=== PATIENT | female | born 1930 | race Caucasian/White ===

== ENCOUNTER 2019-08-11 14:49 | Inpatient (IN) ==
--- NOTE | 2019-08-11 15:16 | Diag Imaging Result Doc PS360 ---
EXAM: CT HEAD W/O CONTRAST HISTORY: stroke like symptoms TECHNIQUE: CT head without contrast COMPARISON: None. FINDINGS: No parenchymal hemorrhage. No epidural or subdural hematoma. No subarachnoid hemorrhage. There is mild atrophy with mild chronic microvascular ischemic changes. No mass identified on this noncontrasted exam. No hydrocephalus. No sinus opacification. IMPRESSION: 1.No hemorrhage 2.Atrophy with chronic microvascular ischemic changes This exam was performed using automated exposure control, adjustment of mA or kV according to patient size, and/or use of iterative reconstruction technique. Electronically signed by Tacos Lund 08/11/2019 3:14 PM
[2019-08-11] MEDS ORDERED: ASPIRIN PO STA (15:22)
[2019-08-11] MEDS ORDERED: INDERAL PO ONE ×2 (15:25→15:30)
[2019-08-11 16:10] LABS: HEMATOCRIT 44.3 % (37.0-47.0); HEMOGLOBIN 14.2 g/dL (12.0-16.0); MCH 31.8 PG (27-31); MCHC 32.1 g/dL (33-37); MCV 99.1 FL (81-99); RBC 4.47 XMIL (4.2-5.4); RDW 13.4 % (11.5-14.5); WBC 6.11 X1000 (4.8-10.8)
[2019-08-11 16:27] LABS: CALCIUM 9.5 mg/dL (8.8-10.2); CREATININE 1.2 mg/dL (0.5-0.9); POTASSIUM 4.5 mmol/L (3.5-5.1)
--- NOTE | 2019-08-11 16:44 | EKG Report ---
Test Performed on : 08/11/2019 4:33:05 PM Test Reason : stroke-like symptoms Blood Pressure : / mmHG Vent. Rate : 080 BPM Atrial Rate : 080 BPM P-R Int : 172 ms QRS Dur : 076 ms QT Int : 400 ms P-R-T Axes : 054 030 000 degrees QTc Int : 461 ms Normal sinus rhythm. Nonspecific ST abnormality Abnormal ECG When compared with ECG of 26-DEC-2015 19:19, T wave inversion now evident in Inferior leads Unconfirmed Result
[2019-08-11] MEDS ORDERED: PHENERGAN IV PRN (18:45)
[2019-08-11] MEDS ORDERED: LOVENOX 1 MG/KG SUBQ SCH (18:45)
[2019-08-11] MEDS ORDERED: DESYREL PO PRN (18:45)
[2019-08-11] MEDS ORDERED: SODIUM CHLORIDE 0.9% INJ PRN (18:45)
[2019-08-11] MEDS ORDERED: TYLENOL PO PRN (18:45)
--- NOTE | 2019-08-11 19:48 | HISTORY AND PHYSICAL ---
CHIEF COMPLAINT: Suspected TIA. HISTORY OF PRESENT ILLNESS: Ms. Samaria Lloyd is an 88-year-old lady who is well known to me. She has a history of essential hypertension, osteoporosis, and a solitary kidney. She presented to the ER this afternoon with a suspected TIA. Mrs. Lloyd had been in her usual state of health and had gone for her weekly appointment at the [facility]. She had sudden onset of dizziness with slurred speech and suspected left arm weakness. Her blood pressure was quite labile. Systolic blood pressures were in the 180s and 190s whereas her diastolic blood pressures were in the 70s and 80s. She denies any chest pain, palpitations, or anginal equivalents. On arrival to the ER, she was back to her baseline neurologically. She was alert and easily arousable. She answered questions appropriately. Her speech was fluent. She did have what appeared to be slight diminished c python developer strength in the left hand. Her initial CT scan of the brain demonstrated chronic white matter changes but there was no evidence of an acute stroke. PAST MEDICAL HISTORY: Essential hypertension, solitary kidney, osteoporosis. PAST SURGICAL HISTORY: , bilateral cataract surgery, appendectomy, hysterectomy. ALLERGIES: No known drug allergies. MEDICATIONS: Vitamin D 50,000 units weekly, propranolol 20 mg b.i.d., trazodone 50 mg at bedtime p.r.n. insomnia. FAMILY HISTORY: Her father had type 2 gud-oceixki-auqedtbby diabetes mellitus, ischemic heart disease and of an KS at age 47. Her mother had hypertension. SOCIAL HISTORY: She is a former smoker. She does not consume alcoholic beverages. She is a . REVIEW OF SYSTEMS: She denies any recent weight gain or weight loss.HEENT: She wears glasses. She is somewhat hard of hearing. CV: No chest pain, palpitations or anginal equivalents. Pulmonary: No shortness of breath, PND, orthopnea. GI: No reflux, dysphagia, melena, hematochezia, change in bowel habits or rectal bleeding. Endocrine: No polyuria, no polydipsia, no cold or heat intolerance. Skin: No easy bruisability. : No leakage of urine with coughing or laughing. Neurologic: She has a somewhat ataxic gait due to neuropathy. Temperature 98 degrees, pulse 79, respirations 16, BP 177/103. HEENT: Fundi with arteriolar wall thickening. Pupils equal, round, reactive to light. Extraocular eye movements intact. TMs without bullae. Neck: Supple. No masses, JVD or bruits. CV: Regular rate and rhythm. Lungs: Clear. Abdomen: Soft, nontender with active bowel sounds. No hepatosplenomegaly. No abdominal bruits. Extremities: Without edema. Skin: No palpable purpura. Breasts/DATA ANALYST/Rectal: Deferred. Neuro: She is alert and easily arousable. She is oriented to name, place, and time. Cranial nerves 2-12 intact grossly. She has somewhat diminished c python developer strength in the left hand. She has normal tone and strength in the lower extremities. Tongue is midline. Speech is fluent. ASSESSMENT AND PLAN: 1. Transient ischemic attack. I suspect that she had a transient ischemic attack due to the underlying hypertension. We will admit the patient to [facility] as an outpatient with observation services. I will begin aspirin 325 mg daily, Lovenox 1 mg/kg subcutaneously b.i.d. and will begin neuro checks every 4 hours for the next 24 hours. I will arrange for carotid ultrasound. If she is neurologically stable in the morning with no deficits I believe that she potentially could be discharged home and I would most likely put her on a medicine like Plavix. Given her age, the potential risks of statin use outweigh the lifetime benefit of statins, I believe that statins are contraindicated. 2. Hypertension. Her blood pressure is too high. I do not want to drop her blood pressure too quickly as it potentially could increase the watershed area of an early stroke. We will continue propranolol 20 mg b.i.d. Ideally I would like to see her systolic blood pressures in the 150s in order to reduce the risk of hypotension and falls. Given her clinical presentation and comorbid conditions, I believe that admission to the hospital for further evaluation and management of the underlying transient ischemic attack is reasonable. I anticipate that she will be in the hospital for at least 1 midnight and I will therefore place her in outpatient status with observation services. cc: Nilsa Courtney MD
[2019-08-11] MEDS: INDERAL PO SCH (20:44)
[2019-08-11] MEDS: LOVENOX SUBQ SCH (20:44)
[2019-08-12] MEDS: LOVENOX SUBQ SCH ×2 (08:44→20:38)
[2019-08-12] MEDS: INDERAL PO SCH ×2 (08:44→20:38)
[2019-08-12 11:20] LABS: URINE SOURCE CLEAN CATCH
[2019-08-12 11:27] LABS: BILIRUBIN URINE NEGATIVE (NEGATIVE); BLOOD URINE SMALL (NEGATIVE); COLOR YELLOW; GLUCOSE URINE NEGATIVE (NEGATIVE); KETONE URINE NEGATIVE (NEGATIVE); LEUKOCYTES URINE LARGE (NEGATIVE); NITRITE URINE NEGATIVE (NEGATIVE); PROTEIN URINE 30 mg/dL (NEGATIVE); SP GRAVITY URINE 1.015; TURBIDITY URINE TURBID (CLEAR); UROBILINOGEN URINE NORMAL (NORMAL)
[2019-08-12 11:35] LABS: UR EPITHELIAL CELLS <10 /HPF (<10); URINE BACTERIA 4+ /HPF; URINE WBC TNTC /HPF (<10)
[2019-08-12 12:14] LABS: URINE YEAST NONE SEEN
[2019-08-12] MEDS: ASPIRIN PO SCH (12:42)
[2019-08-12] MEDS: MACROBID PO SCH (20:38)
[2019-08-13] MEDS: ASPIRIN PO SCH (08:18)
[2019-08-13] MEDS: INDERAL PO SCH ×2 (08:18→20:24)
[2019-08-13] MEDS: MACROBID PO SCH ×2 (08:18→20:25)
[2019-08-13] MEDS: LOVENOX SUBQ SCH ×2 (08:18→20:25)
--- NOTE | 2019-08-13 10:20 | ECHO REPORT ---
ORDER DATE: 08/12/2019 MEASUREMENTS: 1. Septal thickness 1.6. 2. Left ventricular internal diameter in diastole 2.7. 3. Aortic root 3.4. 4. Left atrium 5.0. SUMMARY: 1. Fair quality study. There are no true parasternal windows. 2. Very mild sclerosis of trileaflet aortic valve demonstrated with adequate aortic valve opening evident. Peak gradient across aortic valve is approximately 17 mmHg in the setting of relatively hyperdynamic left ventricle. There is no significant aortic stenosis. There is mild aortic regurgitation. Mild mitral annular calcification is demonstrated. There is mild mitral regurgitation. Tricuspid and pulmonic valves are without evidence of structural abnormality with mild tricuspid regurgitation and trace pulmonic insufficiency. The estimated systolic PA pressure by Doppler is 30 to 35 mmHg. The aortic root is normal size. 3. Normal left ventricular chamber size with moderate concentric left hypertrophy is demonstrated. Estimated left ejection fraction appears to be at least 70%. No regional wall motion abnormality is evident. Doppler suggests grade 1 left ventricular diastolic dysfunction. Left atrium is moderately enlarged. Right atrium and right ventricle normal size with normal right ventricular systolic function. 4. No pericardial effusion. 5. Inferior vena cava not well demonstrated. CONCLUSIONS: 1. Fair quality study. 2. Very mild aortic valve sclerosis without stenosis with mild aortic regurgitation. 3. Mild mitral annular calcification with mild mitral regurgitation. 4. Mild tricuspid regurgitation. 5. Moderate concentric left ventricular hypertrophy with estimated ejection fraction at least 70%. 6. Grade 1 left ventricular diastolic dysfunction suggested. 7. Moderate left atrial enlargement. cc: MD Morgan Ashby MD M. Neel Roberts, MD MTDD
[2019-08-13] MEDS ORDERED: PRINIVIL PO ONE (15:21)
[2019-08-13] MEDS ORDERED: DESYREL PO SCH (21:00)
[2019-08-14] MEDS: MACROBID PO SCH ×2 (08:33→21:29)
[2019-08-14] MEDS: INDERAL PO SCH ×2 (08:33→21:29)
[2019-08-14] MEDS: LOVENOX SUBQ SCH ×2 (08:33→21:29)
[2019-08-14] MEDS: ASPIRIN PO SCH (08:33)
[2019-08-14] MEDS ORDERED: STERILE WATER INJ. INJ ONE (08:36)
--- NOTE | 2019-08-14 19:32 | NEUROLOGY CONSULTATION ---
DATE: 08/14/2019 REASON FOR CONSULT: Stroke. HISTORY OF PRESENT ILLNESS: This is an 88-year-old, right-handed, female, with history of hypertension, who was admitted on 08/11/2019 with concerns for TIA or stroke. History is from chart review and some from the patient, although she has some difficulty with history giving. Apparently, the patient was feeling well. Went to her appointment at the [facility] and while there had the onset of dizziness, slurred speech, and possibly left arm weakness. Her hair assistant recommended that they call EMS and bring her to the hospital. There were no other symptoms reported. Blood pressure on arrival was 177/118. Head CT did not show acute findings. Apparently, the patient's symptoms improved significantly and she was nearly back to baseline in the emergency department. It was felt she had slight diminished sous chef kitchen manager strength on the left hand. I believe the following day, the patient's son felt that her symptoms had worsened again. She was ultimately kept longer in the hospital than anticipated for this reason. Additionally, she has had some confusion mostly overnight. She is diagnosed with urinary tract infection and is receiving treatment for that as well. The patient has been started on low-dose daily aspirin. PAST MEDICAL HISTORY: Includes: 1. Hypertension. 2. Solitary kidney. 3. Osteoporosis. 4. . 5. Bilateral cataract surgery. 6. Appendectomy. 7. Hysterectomy. FAMILY HISTORY: Diabetes, coronary disease, hypertension. SOCIAL HISTORY: She is a former smoker many years ago, she stated. No alcohol or illicits. She is a and lives alone in her own home. She continues to drive and she takes care of herself. She has one son who lives in [place]. ALLERGIES: No known drug allergies listed. CURRENT MEDICATIONS: Reviewed in the chart. She was started on low-dose daily aspirin. REVIEW OF SYSTEMS: Balance of 12 conducted and otherwise negative except that detailed in the HPI. PHYSICAL EXAMINATION: Vital Signs: She is afebrile. Blood pressure currently 140/80. Pulse 82. Respirations 16. Oxygen saturation 98% on room air. Neurologic: Ms. Lloyd is supine in bed. She is awake and alert. She regards as I enter the room. She her name, location as hospital, although later she informs me that she thought she was in [place] at the hospital. She knows the year and the month, but was off by one on both the date and day of the week. She knows the President. She followed simple commands. Left/right digit distinction preserved. She named glasses, but could not name the lens. She named the watch and watch face, but could not name the watch band. She has prominent dysarthria. I do not detect obvious language disturbance on brief bedside testing. I believe her to be a little bit confused regarding the timing of her symptoms and her hospital course when looking through the chart. Pupils are equal, round, and reactive to bright light. Gaze is conjugate. Ocular movements are full. There is mild left-sided flattening of the nasolabial fold and facial asymmetry with smile. She reports preserved sensation to pinprick over the face. Tongue is midline. I could not visualize the palate. She can hear. Shoulder shrug was full. There was not obvious pronator drift. There is mildly diminished sous chef kitchen manager strength on the left compared to the right. I could overcome the deltoids bilaterally; however, I do believe she was not displaying full effort, I believe inadvertently. I do think at times the left may have been slightly worse than the right, but this was not consistent. I could overcome the triceps more so than the right, grading 4/5. Biceps bilaterally seemed reasonably well-preserved. Hip flexor on the left was 4/5 and 5/5 on the right. Knee flexion 4+ out of 5 on the left, and at times 4/5 on the right with again variable effort with testing this area on either side. Extension seemed good bilaterally. Dorsiflexion and plantar flexion were good bilaterally. Pinprick reported symmetric over the limbs. Absent ankle jerks. Trace knee jerks bilaterally. Trace to 1+ biceps bilaterally. No clonus. Plantar responses downgoing bilaterally. I did not test her gait. DIAGNOSTICS: Head CT noncontrast on arrival: No acute findings. There was moderate generalized cerebral atrophy and there is mention of chronic microvascular ischemic changes. This was personally reviewed. Echocardiogram did not mention visualization of clots or thrombus. It did note moderate left atrial enlargement. Labs reviewed in the chart. BUN 26, creatinine of 1.2. Blood glucose normal. There were gram-negative rods growing in the urine. ASSESSMENT AND PLAN: 1. Suspected ischemic stroke with overall mild left hemiparesis, prominent dysarthria. Agree with daily aspirin therapy. Initiation has been done. Statin has not been started given her age and risk versus benefit status there. I would continue to cautiously monitor her blood pressure and avoid hypotension. I believe she is on telemetry monitoring. I believe carotid Dopplers are pending. 2. I believe she has had some periods of confusion, it looks like mostly overnight, and not sleeping well. This may be multifactorial with contributions from current urinary tract infection, her age, recent stroke. I am not certain of her baseline cognitive status, but she does have generalized cerebral atrophy on imaging, probably moderate. Would continue with frequent reorienting as needed. Hopefully, she will continue to improve as her urinary tract infection is improved and as she gets to a more familiar area. Thank you for the consult. cc: MD Nilsa Castaneda MD MTDD
[2019-08-14] MEDS ORDERED: GEODON IM ONE (20:00)
--- NOTE | 2019-08-14 21:01 | Carotid Study ---
DATE: 08/11/2019 REFERRING PHYSICIAN: Nilsa Courtney MD INTERPRETING PHYSICIAN: Cy Mcgill MD QUALITY INTERN: Aristeo. INDICATION: The patient has severe dementia and has a transient ischemic attack. FINDINGS: Velocities are noted. The right internal common carotid shows 0.9. Left is 0.9. Percent stenosis 0 to 39 on the right and 0 to 39 on the left. There is antegrade vertebral flow. INTERPRETATION: Minimal plaque in the bulbs. Neither side produces stenosis of hemodynamic consequence. There is antegrade vertebral flow bilaterally. cc: MD Nilsa Taylor MD
[2019-08-15] MEDS: INDERAL PO SCH ×2 (09:03→20:57)
[2019-08-15] MEDS: ASPIRIN PO SCH (09:03)
[2019-08-15] MEDS: LOVENOX SUBQ SCH ×2 (09:03→20:56)
[2019-08-15] MEDS: MACROBID PO SCH ×2 (09:03→20:57)
--- NOTE | 2019-08-15 09:15 | PROGRESS NOTE ---
DATE: 08/15/2019 Ms. Lloyd was admitted to [facility] on 08/11/2019 with an apparent TIA. Over the weekend, she had episodes of slurred speech and worsening weakness of the left upper extremity. Her CT scan of the brain demonstrated no acute stroke. Her son reported that she felt that she was confused and disoriented over the weekend. A urine culture is growing out gram-negative rods. She is taking Bactrim. This morning, she seemed more like herself. She was sleepy but she opened her eyes to verbal stimuli. She could identify Nickolas. She knew her name and that she was in the hospital. A carotid Doppler demonstrated minimal plaque in the bulbs. No hemodynamic lesion was noted. An echocardiogram demonstrated grade 1 left ventricular diastolic dysfunction and moderate LVH. There was no aortic stenosis. PHYSICAL EXAMINATION: Temperature 98.1 degrees, pulse 87, respirations 22, BP 108/68. CV: Regular rate and rhythm. Lungs: Clear. Abdomen: Soft, nontender, with active bowel sounds. Neurologic: She is alert and oriented to name and place. There is slight weakness of the left upper extremity. She moves all extremities grossly. ASSESSMENT AND PLAN: 1. Suspected cerebrovascular accident. She does not have a pacemaker or other contraindication to an MRI. I will check an MRI of the brain. We will continue physical therapy. We will continue telemetry to make sure there is no evidence of arrhythmias. We will consult social media sr strategy manager for short-term rehab placement. 2. Metabolic encephalopathy secondary to urinary tract infection. We will continue gentle hydration and antibiotics pending urine culture. cc: Nilsa Courtney MD
--- NOTE | 2019-08-15 10:38 | Diag Imaging Result Doc PS360 ---
EXAM: MRI BRAIN W/O CONTRAST 08/15/2019 HISTORY: CVA TECHNIQUE: T1 sagittal, axial and axial T2, FLAIR, DWI, and coronal gradient echo. COMMENT: There is mild generalized cerebral atrophy. There are extensive punctate and lacunar areas of increased T2-weighted signal intensity throughout the white matter of both hemispheres particularly in the external capsule and adjacent basal ganglia on the right side. There is subcortical hyperintensity in the right parietal lobe and patchy increased signal intensity in the periventricular white matter bilaterally. No evidence of bleed or abnormal extra-axial fluid collection is present. There is no mass effect. There are no previous MRI studies. There is restricted diffusion in the de la o radiata and external capsule on the right. IMPRESSION: Extensive chronic ischemic microvascular changes. Additional acute or subacute infarction in the right external capsule and de la o radiata. Electronically signed by Richie Parr 08/15/2019 10:36 AM
[2019-08-15] MEDS ORDERED: FLEET ENEMA PR ONE (16:20)
--- NOTE | 2019-08-15 19:39 | NEUROLOGY PROGRESS NOTE ---
DATE: 08/15/2019 SUBJECTIVE: No major overnight events. The patient says she is not doing well because she has some constipation. She tried prune juice but is requesting more prune juice and/or a suppository. I have let her nurse know. OBJECTIVE: Vital signs: She is afebrile, blood pressure 129/83, pulse 76, respirations 16, 98% on room air. Neurologic: Ms Lloyd is supine in bed. She seemed to be resting initially. She was easily awakened and remained alert and attentive. She followed simple commands. She was oriented to location and self and situation. She followed simple commands consistently. She continues to have subtle flattening of the nasolabial fold on the left. She continues dysarthric. She has a mild left hemiparesis. DIAGNOSTICS: MRI of the brain noncontrast showing extensive chronic changes as well as an acute or subacute infarction in the right external capsule and de la o radiata. There are no labs today. She continues treatment for urinary tract infection. ASSESSMENT AND PLAN: Recent ischemic stroke in the right external capsule and de la o radiata region. She continues to have mild left hemiparesis and prominent dysarthria. Has been stable neurologically yesterday and today. Agree with PT and OT and ST. No further recommendations to add to my note from yesterday. cc: MD Nilsa Castaneda MD
--- NOTE | 2019-08-16 07:53 | EKG Report ---
Test Performed on : 08/16/2019 07:41:10 AM Test Reason : palpitations Blood Pressure : / mmHG Vent. Rate : 144 BPM Atrial Rate : 144 BPM P-R Int : 000 ms QRS Dur : 078 ms QT Int : 350 ms P-R-T Axes : 000 061 014 degrees QTc Int : 541 ms Critical Test Result: High HR , STEMI Supraventricular tachycardia. ST elevation, consider lateral injury or acute infarct ACUTE [place] / STEMI Abnormal ECG When compared with ECG of 11-AUG-2019 16:33, (Unconfirmed) Vent. rate has increased BY [address] elevation has replaced ST depression in Lateral leads T wave inversion now evident in Anterolateral leads Confirmed by Nilsa Courtney MD ([id number]) on 08/16/2019 1:01:21 PM
[2019-08-16] MEDS ORDERED: LOPRESSOR IV ONE ×2 (08:24→09:14)
--- NOTE | 2019-08-16 08:24 | PROGRESS NOTE ---
DATE: 08/16/2019 SUBJECTIVE: An MRI of the brain demonstrated a recent ischemic stroke in the right external capsule and de la o radiata. She continues to have a mild left hemiparesis. She is much more alert and interactive this morning. She is oriented to name, place, and time. She answers questions appropriately. Urine culture is growing out gram-negative rods. She is currently on nitrofurantoin. OBJECTIVE: Vitals: Temperature 97.7 degrees, pulse 91, BP 106/80. CV: Regular rate and rhythm with ectopy. Lungs: Clear. Abdomen: Soft, nontender, with active bowel sounds. No hepatosplenomegaly. No abdominal bruits. Neurologic: Mild left terri paresis. ASSESSMENT AND PLAN: 1. Metabolic encephalopathy secondary to urinary tract infection. Clinically, she is approaching her baseline neurologically. We will continue Macrodantin pending urine and blood cultures. 2. Recent ischemic CVA. Carotid ultrasound demonstrated no hemodynamically significant lesions. An echocardiogram was unremarkable. We will continue aspirin. I heard a lot of ectopy on examination today, and we will check an EKG. She has had a history of paroxysmal atrial fibrillation in the past. 3. Hypertension. Blood pressure is stable, we will continue propranolol. 4. We will continue occupational therapy, physical therapy and are awaiting short-term rehab placement. cc: Nilsa Courtney MD
[2019-08-16] MEDS: MACROBID PO SCH (08:25)
[2019-08-16] MEDS: INDERAL PO SCH ×2 (08:25→20:56)
[2019-08-16] MEDS: LOVENOX SUBQ SCH ×2 (08:25→20:56)
[2019-08-16] MEDS: ASPIRIN PO SCH (08:25)
--- NOTE | 2019-08-16 08:26 | EKG Report ---
Test Performed on : 08/16/2019 08:11:06 AM Test Reason : palpitations Blood Pressure : / mmHG Vent. Rate : 144 BPM Atrial Rate : 144 BPM P-R Int : 114 ms QRS Dur : 086 ms QT Int : 354 ms P-R-T Axes : 014 -04 050 degrees QTc Int : 548 ms Critical Test Result: High HR , STEMI Sinus tachycardia. ST elevation, consider lateral injury or acute infarct ACUTE [place] / STEMI Abnormal ECG When compared with ECG of 16-AUG-2019 07:41, (Unconfirmed) Questionable change in QRS axis Nonspecific T wave abnormality has replaced inverted T waves in Inferior leads Confirmed by Sherwin RITCHIE, MMary Heath ([id number]) on 08/16/2019 1:01:33 PM
[2019-08-16] MEDS ORDERED: CORDARONE PO ONE (08:38)
[2019-08-16] MEDS ORDERED: LANOXIN IV ONE (08:46)
[2019-08-16] MEDS ORDERED: NS 250 ML IV ONE (09:18)
--- NOTE | 2019-08-16 09:32 | PROGRESS NOTE ---
DATE: 08/16/2019 Earlier this morning she was noted to have an elevated heart rate. Ordered an EKG, which demonstrated SVT with a heart rate of 144. She had [address]-segment elevation laterally. She denies any chest pain, palpitations, or anginal equivalents. Repeat EKG appeared to be somewhat more of an atypical atrial flutter. She still had persistent ST-segment elevation changes. OBJECTIVE: Vital Signs: Temperature 97.4 degrees, pulse 148, respirations 18, BP 111/81. CV: Tachycardic, regular S1, S2. Lungs: Clear. Abdomen: Soft, nontender with active bowel sounds. ASSESSMENT AND PLAN: Atypical atrial flutter with ST-segment changes laterally. She is asymptomatic. She denies any chest pain or shortness of breath. I really wonder if this truly represents an MT or more is rate related. We will check CPK, troponin, and I have given her IV Lopressor 5 mg daily to slow her heart rate down. I spoke to Dr. De Jesus who has seen the patient. He has given her amiodarone. We will plan to transfer her to [facility] once a bed is available. cc: Nilsa Courtney MD
[2019-08-16 10:04] LABS: CALCIUM 8.8 mg/dL (8.8-10.2); POTASSIUM 3.2 mmol/L (3.5-5.1)
--- NOTE | 2019-08-16 10:59 | EKG Report ---
Test Performed on : 08/16/2019 10:51:15 AM Test Reason : Increased Troponin Blood Pressure : / mmHG Vent. Rate : 074 BPM Atrial Rate : 074 BPM P-R Int : 172 ms QRS Dur : 084 ms QT Int : 466 ms P-R-T Axes : 066 057 192 degrees QTc Int : 517 ms Normal sinus rhythm. Marked T wave abnormality, consider anterolateral ischemia Prolonged QT Abnormal ECG When compared with ECG of 16-AUG-2019 08:11, (Unconfirmed) Vent. rate has decreased BY 70 BPM Questionable change in QRS axis ST no longer elevated in Anterolateral leads T wave inversion now evident in Inferior leads T wave inversion more evident in Anterior leads Confirmed by Nilsa Courtney MD ([id number]) on 08/16/2019 1:01:54 PM
--- NOTE | 2019-08-16 11:25 | Diag Imaging Result Doc PS360 ---
EXAM: CHEST-PORTABLE 08/16/2019 HISTORY: rehab placement TECHNIQUE: AP portable at 1113 COMMENT: There is retrocardiac opacity present which is somewhat worse than on 04/08/2015. This is likely related to a hiatal hernia. There is some fibrosis in the lateral costophrenic sulcus on the right. The heart size and pulmonary vascularity are within normal limits. IMPRESSION: Hiatal hernia. Electronically signed by Richie Parr 08/16/2019 11:23 AM
--- NOTE | 2019-08-16 11:47 | EKG Report ---
Test Performed on : 08/16/2019 11:32:19 AM Test Reason : atrial tachyarrhythmia Blood Pressure : / mmHG Vent. Rate : 080 BPM Atrial Rate : 080 BPM P-R Int : 180 ms QRS Dur : 076 ms QT Int : 462 ms P-R-T Axes : 058 050 192 degrees QTc Int : 532 ms Sinus rhythm. with frequent premature ventricular complexes. Marked T wave abnormality, consider anterolateral ischemia Prolonged QT Abnormal ECG When compared with ECG of 16-AUG-2019 10:51, (Unconfirmed) premature ventricular complexes. are now present Confirmed by Nilsa Courtney MD ([id number]) on 08/16/2019 1:01:56 PM
[2019-08-16] MEDS: ROCEPHIN 1 GM in NS 50 ML IV SCH (12:21)
--- NOTE | 2019-08-16 12:47 | NEUROLOGY PROGRESS NOTE ---
DATE: 08/16/2019 LOCATION: Room 206. SUBJECTIVE: Ms. Lloyd had abrupt onset of left hemiparesis. Dr. Santillan saw her for Neurology evaluation earlier this admission. DATA: There was imaging evidence of recent right external capsule and adjacent subcortical white matter infarction. She has had brain MRI, carotid ultrasound, echocardiogram. There is arrhythmia, with Cardiology evaluation in progress. Systolic blood pressures have been 100 to 140s in the last few days, and she has tolerated that. Heart rate was recorded 140s earlier today. OBJECTIVE: On exam, she is awake, alert, attentive. Speech is not significantly dysarthric. Language function is intact. There is left upper motor neuron facial palsy. I can overcome her power in the left arm, grading 4/5 at the deltoid and 4+/5 at the wrist extensor. She had slight difficulty with left [id number], and did well with right [id number]. She reports equal sensation on gross testing over the limbs. I did not test her gait. She has full visual crespo. IMPRESSION: Stable isolated moderate pure motor left hemiparesis with typical subcortical lesion on imaging. Workup has been sufficient. I do not have any new suggestions from Neurology standpoint. Thank you for asking us to see Ms. Lloyd. cc: MD Nilsa Brody III, MD MTDD
[2019-08-16] MEDS ORDERED: CORDARONE PO SCH (13:00)
--- NOTE | 2019-08-16 13:28 | PROGRESS NOTE ---
DATE: 08/16/2019 SUBJECTIVE: Ms. Lloyd converted into atrial flutter with rapid ventricular response. She had ST- segment elevation laterally. She was loaded with digoxin, amiodarone and IV Lopressor and was transferred to the PVC unit. She has subsequently converted back to normal sinus rhythm. CPK was normal at 113. Her initial troponin was 469. OBJECTIVE: She denies any chest pain, palpitations, or dyspnea. Temperature 97.7 degrees, pulse 84, respirations 16, BP 120/69. CV regular rate and rhythm. Lungs clear. Abdomen soft nontender with active bowel sounds. ASSESSMENT AND PLAN: 1. Paroxysmal atrial flutter with rapid ventricular response. She has converted back to normal sinus rhythm. We will continue amiodarone 200 mg t.i.d., Lovenox 60 mg subcutaneous b.i.d., and propranolol 20 mg b.i.d. 2. Suspected lateral myocardial infarction. Her CPKs are normal. Troponin is elevated. She is clinically asymptomatic. We will continue aspirin, propranolol, wall Lovenox and will follow her cardiac enzymes closely. Given her age and overall health, we will most likely treat her conservatively. cc: Nilsa Cuortney MD
--- NOTE | 2019-08-16 14:22 | CONSULTATION ---
DATE OF CONSULTATION: 08/16/2019 IMPRESSION: 1. Supraventricular tachyarrhythmia, probably atrial flutter (type 2) with rapid ventricular rate and associated ST and T-wave changes possibly related to rate versus tachycardia-induced myocardial ischemia. 2. Recent subcortical cerebrovascular accident. 3. Hypertensive cardiovascular disease with significant left ventricular hypertrophy and diastolic dysfunction. RECOMMENDATIONS: 1. Control heart rate acutely with intravenous metoprolol. 2. Initiate amiodarone initially parenterally in an effort to restore sinus rhythm. 3. Follow up cardiac enzymes. 4. Consideration to be given to long-term anticoagulation. This was discussed with her regular primary physician, Dr. Kumar Courtney, and she has some history of gait instability and previous GI blood loss in the past and it is felt best to manage her with aspirin daily. HISTORY: This 88-year-old white female with past history of longstanding hypertension and hypertensive cardiovascular disease was admitted approximately 5 days ago with dizziness slurred speech and some left arm weakness which began spontaneously while she was out at a [employer]. She was brought to the hospital by EMS and she was hypertensive on arrival. Noncontrasted head CT scan was negative. Her symptoms improved initially but then re-emerged the following day. She has been treated for a cerebrovascular accident and further brain imaging studies with MRI indicated subcortical cerebrovascular accident likely related to small-vessel disease. She has been progressively recovering. Early this morning, she developed abrupt onset of tachycardia with heart rate around 140 to 150 beats per minute. She was asymptomatic with this. However, ECG suggested some anterolateral ST and T-wave changes, possibly rate related but possibly tachycardia- induced ischemia. She was treated with intravenous metoprolol x2 doses, intravenous amiodarone 150 mg and intravenous digoxin 0.5 mg. Her heart rate slowed and she ultimately converted back to sinus rhythm. She is not aware of any previous problems with tachyarrhythmias or coronary disease. There is no history of angina. PAST MEDICAL HISTORY: 1. Hypertensive cardiovascular disease with history of longstanding hypertension and current echocardiography indicating significant left ventricular hypertrophy. 2. Solitary kidney. 3. Osteoporosis. PAST SURGICAL HISTORY: Includes previous section, bilateral cataract surgery, appendectomy, and hysterectomy. ALLERGIES: She has no known drug allergies. MEDICATIONS PRIOR TO ADMISSION: As listed. SOCIAL HISTORY: She quit smoking 50 years ago. She lives alone independently. She has a son that lives in [facility]. She does not use alcohol. FAMILY HISTORY: Negative for premature coronary disease. REVIEW OF SYSTEMS: Pulmonary: Negative. Gastrointestinal: Negative other than diminished oral intake and poor appetite since admission. Constitutional: Noncontributory. Remaining review of systems negative/noncontributory with 14 total systems reviewed. PHYSICAL EXAMINATION: General: This is a pleasant elderly white female, in no distress. Vital signs: Blood pressure 120/69, heart rate 74 and regular, oxygen saturation 91 to 93 percent on supplemental oxygen per nasal. HEENT: Extraocular movements appear intact. Mucous membranes are moist. Neck: Supple without jugular venous distention. Neck veins actually appear flat. There are no carotid bruits. Chest: Clear to auscultation bilaterally. Cardiac: Reveals a regular rate and rhythm without appreciable murmur or gallop. Abdomen: Soft. Bowel sounds are normal. Extremities: Without edema. Neurologic: Reveals her to be alert and fully oriented. Speech is fluent. She moves all 4 extremities equally well. DIAGNOSTIC DATA: Admission 12-lead EKG from 08/11/2019 demonstrates normal sinus rhythm and mild nonspecific T-wave abnormality. A 12-lead EKG obtained at 7:36 this morning demonstrates supraventricular tachycardia, probably atypical atrial flutter with rapid ventricular rate. There are anterolateral ST and T-wave changes, consider tachycardia-induced myocardial ischemia. Repeat electrocardiogram later demonstrates normal sinus rhythm and anterolateral T-wave abnormality, consider anterolateral ischemia. QT interval mildly prolonged. LABORATORY DATA: Includes sodium 132, potassium 3.2, chloride 95, carbon dioxide 19, BUN 20, creatinine 1.0, glucose 199. CPK 113, troponin T high-sensitivity 469. Echocardiography this admission demonstrates moderate concentric left ventricular hypertrophy with estimated left ventricular ejection fraction approximately 70%. Grade 1 left ventricular diastolic dysfunction demonstrated. Left atrium moderately enlarged. cc: MD Nilsa Ahsby MD
[2019-08-16] MEDS ORDERED: CARDIZEM IV ONE (19:18)
[2019-08-16] MEDS: CARDIZEM 100 MG/NS 100 MG/100 ML IVPB IV SCH (19:46)
[2019-08-16] MEDS ORDERED: NS 1,000 ML IV SCH (22:00)
[2019-08-16] MEDS: LOPRESSOR PO SCH (22:02)
[2019-08-17] MEDS ORDERED: CALMOSEPTINE OINTMENT TOP PRN (05:06)
[2019-08-17] MEDS: CARDIZEM 100 MG/NS 100 MG/100 ML IVPB IV SCH (06:08)
--- NOTE | 2019-08-17 06:34 | EKG Report ---
Test Performed on : 08/16/2019 6:22:08 PM Test Reason : afib? Blood Pressure : / mmHG Vent. Rate : 128 BPM Atrial Rate : 144 BPM P-R Int : 000 ms QRS Dur : 082 ms QT Int : 348 ms P-R-T Axes : 000 059 -74 degrees QTc Int : 508 ms Atrial fibrillation. with rapid ventricular response. T wave abnormality, consider anterolateral ischemia Abnormal ECG When compared with ECG of 16-AUG-2019 11:32, Atrial fibrillation. has replaced Sinus rhythm. Vent. rate has increased BY 48 BPM T wave inversion less evident in Anterolateral leads Confirmed by Nilsa Courtney MD ([id number]) on 08/17/2019 6:47:39 PM
--- NOTE | 2019-08-17 07:32 | EKG Report ---
Test Performed on : 08/17/2019 06:45:12 AM Test Reason : afib Blood Pressure : / mmHG Vent. Rate : 090 BPM Atrial Rate : 090 BPM P-R Int : 192 ms QRS Dur : 078 ms QT Int : 376 ms P-R-T Axes : 056 059 -85 degrees QTc Int : 459 ms Sinus rhythm. with occasional premature ventricular complexes. T wave abnormality, consider inferior ischemia T wave abnormality, consider anterolateral ischemia Abnormal ECG When compared with ECG of 16-AUG-2019 18:22, (Unconfirmed) Sinus rhythm. has replaced Atrial fibrillation. Confirmed by Nilsa Courtney MD ([id number]) on 08/17/2019 6:47:43 PM
[2019-08-17] MEDS: CORDARONE PO SCH ×3 (08:48→16:36)
[2019-08-17] MEDS: ASPIRIN PO SCH (08:48)
[2019-08-17] MEDS: INDERAL PO SCH (08:48)
[2019-08-17] MEDS: LOPRESSOR PO SCH ×2 (08:49→16:36)
[2019-08-17] MEDS: LOVENOX SUBQ SCH ×2 (08:49→20:28)
[2019-08-17] MEDS: ROCEPHIN 1 GM in NS 50 ML IV SCH (11:28)
--- NOTE | 2019-08-17 13:36 | PROGRESS NOTE ---
DATE: 08/17/2019 SUBJECTIVE: The patient had some transient atrial tachyarrhythmias last night and was started on intravenous diltiazem for rate control as metoprolol was added and amiodarone increased. She spontaneously converted back to sinus rhythm. She continues without chest discomfort. There has been no dyspnea nor palpitations. OBJECTIVE: Blood pressure 125/81, heart rate 79, oxygen saturation 94%. There is no significant jugular venous distention. Chest is clear to auscultation bilaterally. Cardiac Examination: Reveals a regular rate and rhythm without appreciable murmur or gallop. Extremities: Without edema. Pertinent Data: Twelve lead EKG demonstrates normal sinus rhythm with occasional premature ventricular complex and T-wave abnormality, consider inferolateral ischemia. Laboratory Data: Includes serial troponin I sensitivities of 444, 445, and 469. Serial CPKs of 113, 116, and 92. IMPRESSION: 1. Paroxysmal atrial tachyarrhythmias, probably atypical flutter (type 2) with rapid ventricular rate. Patient continues in sinus rhythm on amiodarone. 2. Abnormal electrocardiogram during atrial tachyarrhythmia with ST and T-wave changes, probably rate-related/tachycardia-induced myocardial ischemia. 3. Recent subcortical cerebrovascular accident. 4. Hypertensive cardiovascular disease with moderate concentric left ventricular hypertrophy and left ventricular diastolic dysfunction. 5. Urinary tract infection with Escherichia coli, sensitive to cephalosporins. RECOMMENDATIONS: 1. Continue amiodarone orally. 2. Continue metoprolol 25 mg p.o. b.i.d. and discontinue propranolol. 3. Repeat limited echocardiography to assess wall motion. 4. Conservative cardiovascular management overall. cc: MD Nilsa Ashby MD
[2019-08-17] MEDS ORDERED: LOPRESSOR IV PRN (16:21)
--- NOTE | 2019-08-17 18:03 | PROGRESS NOTE ---
DATE: 08/17/2019 SUBJECTIVE: Patient continues resting comfortably with no chest discomfort or shortness of breath on supplemental oxygen per nasal cannula. She has demonstrated some recurrent episodes of atrial fibrillation with rapid ventricular rate up to around 120 beats per minute without associated symptoms. She is presently back in sinus rhythm. OBJECTIVE: Vital Signs: Blood pressure 120/75, heart rate 68, oxygen saturation 93% on room air. Neck: There is no significant jugular venous distention. Chest: Clear to auscultation. Cardiac exam: Reveals a regular rate and rhythm without appreciable murmur or gallop. There is no evidence of peripheral edema. DIAGNOSTIC STUDIES: Limited followup echocardiography noteworthy for akinesis of the apical anterior wall apex and apical inferior wall as well as apical septum. There is some hyperdynamic wall motion involving the base. LABORATORY DATA: Includes serial troponin T high sensitivities of 469, 444, and 445 with serial CPKs of 113, 116, and 92. IMPRESSIONS: 1. Paroxysmal atrial tachyarrhythmias including type 2 flutter and atrial fibrillation with associated rapid ventricular rate. 2. Abnormal electrocardiogram with ST changes during atrial tachyarrhythmia and following with mild elevation in troponins but normal CPKs and with echocardiography indicating wall motion abnormalities as described. Consider possible rate related myocardial strain versus possible takotsubo syndrome related to her atrial tachyarrhythmia. The area wall motion abnormality is way out of proportion to her cardiac enzyme abnormalities. Her CPKs are all normal. Transmural infarction appears to be unlikely. 3. Recent subcortical cerebrovascular accident. 4. Hypertensive cardiovascular disease with left ventricular hypertrophy and left ventricular diastolic dysfunction. 5. Urinary tract infection with Escherichia coli, sensitive to cephalosporins. RECOMMENDATIONS: 1. Continue amiodarone loading at 400 mg p.o. t.i.d. 2. Increase metoprolol to 25 mg p.o. t.i.d. and supplement with IV metoprolol 5 mg as needed for any breakthrough sustained tachycardia. 3. Conservative cardiovascular management overall for the time being. She has not had any angina. She manifests no signs of congestive heart failure. 4. Consider repeat echocardiography in several days to follow up left ventricular function. cc: MD Nilsa Ashby MD
--- NOTE | 2019-08-17 18:56 | ECHO REPORT ---
ORDER DATE: 08/17/2019 SUMMARY: 1. Limited followup echocardiography performed to follow up left ventricular systolic function and wall motion following recent atrial tachyarrhythmia with associated. ST and T-wave changes on ECG. Acoustic window quality is fair. 2. Normal left ventricular chamber size with moderate concentric left hypertrophy is demonstrated. The estimated left ejection fraction is approximately 35% in the setting of akinesis of the mid to apical anterior wall apex and apical inferior wall as well as apical septum. CONCLUSIONS: Akinesis of the apical anterior wall apex, apical inferior wall and apical septum. cc: MD Nilsa Ashby MD
--- NOTE | 2019-08-17 22:01 | PROGRESS NOTE ---
DATE: 08/17/2019 SUBJECTIVE: Mrs. Lloyd is sitting up in a chair eating breakfast. She is awake and easily arousable. She is oriented to name and place. She seems much more alert and interactive. She has continued to go in and out of atrial fibrillation throughout the night. She denies any chest pain or dyspnea. CPKs are normal. Troponins are mildly elevated. OBJECTIVE: Vital signs: She is afebrile. Pulse is 86, respirations 15, blood pressure 120/76. Cardiovascular: Regular rate and rhythm. Lungs: Clear. Abdomen: Soft, nontender with active bowel sounds. ASSESSMENT AND PLAN: 1. Metabolic encephalopathy secondary to underlying urinary tract infection. Urine cultures grew out Escherichia coli. We will continue intravenous Rocephin and hopefully will transition her to oral medications soon. 2. New onset atrial fibrillation with rapid ventricular response. She continues to go in and out of atrial fibrillation with an elevated rate. We will continue metoprolol 25 mg b.i.d. and use IV Lopressor as needed for elevated heart rate. She has been loaded with oral amiodarone. We will monitor her rhythm closely. 3. Abnormal EKG. She had EKG, which demonstrated minimal ST-segment elevation laterally. This certainly could represent an GA or strain in the face of the tachyarrhythmias. She remains clinically asymptomatic. She denies any chest pain, palpitations, or anginal equivalents. Given her overall age and health, I believe that treating her conservatively would be appropriate. 4. Subacute stroke. We will continue physical therapy and will transfer to short-term rehab when medically stable. cc: Nilsa Courtney MD
[2019-08-18] MEDS: LOPRESSOR PO SCH ×3 (00:30→20:43)
[2019-08-18] MEDS ORDERED: PLAVIX PO SCH (09:00)
[2019-08-18] MEDS ORDERED: ASPIRIN PO SCH (09:00)
[2019-08-18] MEDS: ASPIRIN PO SCH (09:07)
[2019-08-18] MEDS: SEPTRA DS PO SCH ×2 (09:07→20:43)
[2019-08-18] MEDS: CORDARONE PO SCH ×3 (09:08→16:31)
[2019-08-18] MEDS: PAXIL PO SCH (09:08)
[2019-08-18 12:00] LABS: HEMATOCRIT 38.4 % (37.0-47.0); HEMOGLOBIN 12.4 g/dL (12.0-16.0); MCH 30.8 PG (27-31); MCHC 32.3 g/dL (33-37); MCV 95.3 FL (81-99); MPV 12.1 FL (7.4-10.4); RBC 4.03 XMIL (4.2-5.4); RDW 13.2 % (11.5-14.5); WBC 12.65 X1000 (4.8-10.8)
[2019-08-18 12:40] LABS: CALCIUM 8.4 mg/dL (8.8-10.2); CREATININE 1.1 mg/dL (0.5-0.9); MAGNESIUM 2.2 mg/dL (1.5-2.7); POTASSIUM 3.7 mmol/L (3.5-5.1)
--- NOTE | 2019-08-18 14:05 | PROGRESS NOTE ---
DATE: 08/18/2019 SUBJECTIVE: Mrs. Lloyd continues to have transient episodes of atrial fibrillation and flutter throughout the night. Heart rate is ranging from 77 to 88 over the past 12 hours. She denies any chest pain, chest tightness or dyspnea. Her CHADS2 vascular score was 5. She is back to her baseline neurologically. She is awake and easily arousable. She is sitting up in bed eating. She answers questions appropriately. Urine cultures grew out Escherichia coli. OBJECTIVE: Vital Signs: Temperature 97.5 degrees, pulse 77, respirations 18, blood pressure 116/67. Cardiovascular: Regular rate and rhythm. Lungs: Clear. Abdomen: Soft, nontender, with active bowel sounds. ASSESSMENT AND PLAN: 1. Paroxysmal atrial fibrillation and flutter. She certainly is at a higher risk for having another stroke. Her CHADS2 vascular score was 5. Even though she has had episodes of recurrent epistaxis over the past several months, we believe that the benefits of treating her with Eliquis 2.5 mg b.i.d. is greater than the potential side effects. We will continue Eliquis 2.5 mg b.i.d. We because of low blood pressure, I have backed down the dosage of metoprolol to 25 mg b.i.d. We will continue amiodarone. 2. Metabolic encephalopathy secondary to urinary tract infection. The encephalopathy has resolved. We will continue Bactrim DS 1 p.o. b.i.d. for an additional 7 days. 3. Subacute cerebrovascular accident. We will continue Eliquis 2.5 mg b.i.d. and blood pressure control. At her age of 88, the risks of statins out weigh the lifetime benefits of the statin. Statins are contraindicated. Once she is stable, we will transfer her to [facility] in order to undergo short-term rehab. cc: Nilsa Courtney MD
--- NOTE | 2019-08-18 18:56 | NEUROLOGY PROGRESS NOTE ---
DATE: 08/18/2019 Ms. Lloyd does not have any new complaints. She generally feels well. Carotid ultrasound showed no hemodynamically significant stenosis bilaterally. Echocardiogram shows akinesis of the apical anterior wall apex, apical inferior wall, and apical septum but no thrombus. Her left hemiparesis is improved compared to when I saw her a few days ago. I can overcome the left arm at the deltoid and wrist extensor as before, but these are stronger than a few days ago. Left facial droop is improved. Speech is not dysarthric. IMPRESSION: Subcortical nondominant right hemisphere infarction, stable clinically with improved neurologic deficit. In light of the small area of infarction, stable course, 7+ day history since onset, I think we can go ahead with anticoagulation as planned. Thanks for asking Neurology to see Ms. Lloyd. cc: MD Nilsa Brody III, MD
[2019-08-18] MEDS: ELIQUIS PO SCH (20:43)
[2019-08-19] MEDS: PAXIL PO SCH (08:39)
[2019-08-19] MEDS: LOPRESSOR PO SCH ×2 (08:40→20:22)
[2019-08-19] MEDS: CORDARONE PO SCH ×2 (08:40→12:40)
[2019-08-19] MEDS: ELIQUIS PO SCH ×2 (08:40→20:22)
[2019-08-19] MEDS: SEPTRA DS PO SCH ×2 (08:40→20:22)
--- NOTE | 2019-08-19 08:47 | CARDIOLOGY PROGRESS NOTE ---
DATE: 08/19/2019 CHIEF COMPLAINT: Weakness of the left upper extremity. SUBJECTIVE: Ms. Lloyd generally feels better. The strength in her left arm has improved. She is not having chest pain. She feels generally that she is coming along. Her appetite is poor. OBJECTIVE: Vital Signs: Blood pressure is 114/67, temperature 98.6, pulse 80, and respirations 18. Telemetry shows PACs, PVCs, and sinus rhythm. On the she did show definite evidence of atrial fibrillation on her surface EKG. That was at 6:22 p.m. General: She is awake, alert, oriented and in no distress. HEENT: Unremarkable. Chest: Clear to auscultation and percussion. Cardiovascular: Heart sounds are regular and rhythmic. No gallop or murmur. Abdomen: The abdomen is nontender. Extremities: No edema. Neurological: She has some weakness of the left upper extremity. LABORATORY DATA: Urine culture was growing E. coli on 08/12/2019 sensitive to ampicillin/sulbactam, cefazolin, nitrofurantoin, and trimethoprim sulfa. Her white cell count yesterday was 12,650. Her sodium yesterday was 131, potassium 3.7, BUN 26, and creatinine 1.1. IMPRESSION: 1. Patient who presented seemingly with a right subcortical stroke and left upper extremity weakness. 2. Paroxysmal atrial fibrillation. 3. Left ventricular systolic function with abnormal EKG and elevation of troponin, question of severe coronary heart disease versus takotsubo cardiomyopathy. 4. Urinary tract infection. 5. Hypertensive heart disease. RECOMMENDATIONS: At this time we will continue a conservative approach. Dr. Estrella from Neurology is following the patient. She is presently on metoprolol 25 mg b.i.d., apixaban 2.5 mg b.i.d., and sulfamethoxazole. We will see how the patient does. We will continue to monitor her closely. cc: MD Nilsa Finley MD
--- NOTE | 2019-08-19 11:01 | PROGRESS NOTE ---
DATE: 08/19/2019 SUBJECTIVE: Ms. Lloyd is not eating much, that is her main concern. She is awake, alert, oriented x3. No complaints of pain. No headache. She is tolerating her medication and apparently swallowing pretty good. PHYSICAL EXAMINATION: Vital signs: On exam today, she remains afebrile, temperature 97.6 degrees, pulse 86, respirations 18, blood pressure 119/63. HEENT: Pupils are equal and round. Lungs: Clear in all lung crespo. Cardiovascular: Regular rhythm and rate without murmur or S3. Abdomen: Soft. Skin: Warm and dry. URINE OUTPUT: About 700 mL. ASSESSMENT AND PLAN: 1. Subcortical nondominant right hemisphere infarction, stable clinically and improving. In light of the small area of infarction, we have restarted her anticoagulation. 2. Paroxysmal atrial fibrillation and flutter. She certainly is a high risk for bleeding, but CHADS2 vascular score was 5. She has had episodes of epistaxis, but we are going to continue the Eliquis 2.5 mg b.i.d. 3. Metabolic encephalopathy secondary to urinary tract infection which has been well treated. She is on Bactrim Double Strength 1 twice a day. 4. Poor appetite. Continue to encourage p.o. intake. I think the plan is to go to [facility] on Wednesday. REVIEW OF HER ORDERS: She takes Cordarone 400 mg p.o. t.i.d. loading dose and that was changed recently to 200 mg twice a day, that will start tomorrow and then on the , she will go down to 200 mg daily. Eliquis 2.5 mg b.i.d., metoprolol 25 mg b.i.d., Paxil 10 mg daily. REVIEW OF LABS: From , sodium 131, potassium 3.7, chloride 94, BUN 26, creatinine 1.1. cc: MD Nilsa Hernandez MD
[2019-08-20] MEDS: ELIQUIS PO SCH ×2 (08:15→21:25)
[2019-08-20] MEDS: SEPTRA DS PO SCH ×2 (08:15→21:25)
[2019-08-20] MEDS: CORDARONE PO SCH ×2 (08:15→21:25)
[2019-08-20] MEDS: LOPRESSOR PO SCH ×2 (08:15→21:25)
[2019-08-20] MEDS: PAXIL PO SCH (08:15)
--- NOTE | 2019-08-20 13:03 | PROGRESS NOTE ---
DATE: 08/20/2019 SUBJECTIVE: Ms. Lloyd says she feels comfortable. No complaints. Had a good night's sleep. Breathing comfortably. OBJECTIVE: Vital Signs: She remains afebrile, temperature 97.7 degrees, pulse 74, respirations 21, blood pressure 112/60. HEENT: Her pupils are equal. Neck: No distended neck veins. Lungs: Clear in all lung crespo. Cardiovascular: Regular rhythm and rate without murmur or S3. Abdomen: Soft. Skin: Warm and dry. Urine output was 1100 mL. ASSESSMENT AND PLAN: 1. Subcortical nondominant right hemisphere infarction, cerebrovascular accident, stable clinically and improving. In light of small area of infarction, they have restarted anticoagulation. She has underlying atrial fibrillation. 2. Paroxysmal atrial fibrillation and flutter. High risk for bleeding, but her CHADS2-VASc score was 5, and so she has had episodes of epistaxis, but she is back on Eliquis 2.5 mg twice daily, not had any trouble with bleeding. 3. Metabolic encephalopathy secondary to urinary tract infection, which has been treated. She is on Bactrim Double-Strength twice a day. 4. Poor appetite. Continue to encourage oral intake. The plan is to try and get to [facility] tomorrow. REVIEW OF ORDERS: She is on Bactrim Double-Strength 1 twice a day, Paxil 10 mg a day, Lopressor 25 mg a day, amiodarone 200 mg daily will start on 08/22/2019. Right now, she is on 200 mg twice a day. REVIEW OF LABORATORY DATA: Her last labs was on 08/18/2019, and it looked good. Note, she has had some high troponins. Her troponins have been in the 400s, but do not see evidence of cardiac ischemia. cc: MD Nilsa Hernandez MD
[2019-08-21] MEDS: CORDARONE PO SCH (09:04)
[2019-08-21] MEDS: PAXIL PO SCH (09:04)
[2019-08-21] MEDS: ELIQUIS PO SCH (09:04)
[2019-08-21] MEDS: LOPRESSOR PO SCH (09:04)
[2019-08-21] MEDS: SEPTRA DS PO SCH (09:05)
[2019-08-21 11:31] VITALS: BP 111/66
--- NOTE | 2019-08-21 12:56 | DISCHARGE SUMMARY ---
ADMISSION DATE: 08/11/2019 DISCHARGE DATE: 08/21/2019 DISCHARGE DIAGNOSES: 1. Metabolic encephalopathy. 2. Urinary tract infection with sepsis. 3. Paroxysmal atrial fibrillation and atrial flutter with rapid ventricular response. 4. Paroxysmal atrial fibrillation and flutter. 5. Essential hypertension. 6. Cerebrovascular accident with residual left hemiparesis. 7. Age-related osteoporosis without current pathologic fracture. DISCHARGE INSTRUCTIONS: 1. The patient will be transferred via ambulance to [facility] in order to undergo short term rehab. 2. Activity as tolerated. 3. Healthy heart diet. MEDICATIONS: Tylenol 650 mg every 6 hours p.r.n. pain or temperature greater than 101, amiodarone 200 mg b.i.d., Eliquis 2.5 mg b.i.d., metoprolol 25 mg b.i.d., paroxetine 10 mg daily prn, Bactrim DS 1 p.o. b.i.d. for 7 days. DISCHARGE PHYSICAL EXAMINATION: General: This is an elderly, frail 88-year-old lady in no apparent distress. Vital Signs: She is afebrile, pulse 80, respirations 18, blood pressure 131/69. Cardiovascular: Regular rate and rhythm. Lungs: Clear. Abdomen: Soft, nontender with active bowel sounds. Neurologic: She is alert and oriented to name, place, and time. She has a residual left hemiparesis. HISTORY AND HOSPITAL COURSE: Ms. Lloyd was admitted to [facility] with what was initially felt to be a TIA. On exam, she did have some apparent weakness in the left upper arm. By all accounts, she was back to her baseline neurologically in the ER. We initially admitted her as an outpatient. On hospital day number 2, she had episodes of slurred speech, as well as worsening weakness on the left side. Her initial CT scan demonstrated no acute stroke. There was no hemorrhage. A followup MRI of the brain demonstrated extensive chronic ischemic microvascular changes with a subacute infarction in the right external capsule and de la o radiata. An ultrasound of the carotids was unremarkable. An echocardiogram demonstrated no evidence of a clot in any of the chambers of the heart. Physical therapy and occupational therapy were consulted to see the patient. She made good improvement with physical therapy. Arrangements were made to refer her to [facility] for short term rehabilitation. She will need home health at discharge from [facility]. Initially, the etiology of her stroke was unclear. She did go into atrial fibrillation and atrial flutter with rapid rate. We initially treated her with IV diltiazem, IV metoprolol, and loaded her with amiodarone. The patient was transferred to the PVC unit. She continued to go in and out of atrial fibrillation. Her medicines were adjusted. At the time of discharge, she had not had any episodes of atrial fibrillation or atrial flutter in nearly 36 hours. Her heart rate had been in the 60s and 70s on metoprolol-XL 25 mg b.i.d. She did have a BRANDON vascular score of 5. She certainly is at increased risk for another stroke. She has had no previous history of rheumatic heart fever. We felt that even though she had had bleeding complications in the past, such as recurrent epistaxis, that the risk of another stroke was greater than the risk of bleeding. We started her on low-dose Eliquis 2.5 mg b.i.d. If she were to have significant bleeding complications, we certainly could switch her to aspirin and Plavix. Because of her age, we felt that the risks of statins outweighed the lifetime benefits of those medicines, and therefore, statins were contraindicated On hospital day number 2, she had increasing confusion, disorientation, and lethargy. During her hospitalization, she had a heart rate greater than 90 and a respiratory rate greater than 20. Chest x-ray demonstrated no infiltrates. UA was wildly positive. Urine culture grew out Pseudomonas aeruginosa. She was initially treated with Rocephin and was transition to oral Bactrim. She has completed 8 days of antibiotics and will take an additional 7 day course of Bactrim DS 1 p.o. b.i.d. We felt that the metabolic encephalopathy was due to the underlying urinary tract infection. With aggressive treatment of the underlying UTI, the encephalopathy resolved. Having reached maximum hospital benefit, the patient was discharged in stable condition. cc: MD REGAN Oliva
[2019-08-22] MEDS ORDERED: CORDARONE PO SCH (09:00)
== END 2019-08-21 15:56 | DRG 64 ==
LOC: SUPCPDRO → ED 14:49 → EDIPHOLD 16:49 → 3N 20:11 → 2N 08-16 11:24
PROVIDERS: ADMIT Internal Medicine; ATTEND Internal Medicine